=== PATIENT | female | born 1950 | race Two or more races ===

== ENCOUNTER 2024-08-05 14:58 | Emergency (ER) | payer OTHER ==
[~2024-08-05] VITALS: Ht 167.6 cm; Wt 66.2 kg
[2024-08-05] MEDS ORDERED: SYNTHROID50 MCG (15:22)
[2024-08-05 16:20] LABS: HEMATOCRIT 34.8 % (36.0-45.00); HEMOGLOBIN 11.9 g/dL (12.0-15.00); MEAN CELL VOLUME 93.3 fL (80.00-100.00); MEAN CORPUSCULAR HGB CONC 34.3 g/dl (32.0-36.0); PLATELET COUNT 203 K/uL (150-450); RED BLOOD COUNT 3.73 M/uL (4.00-6.00)
[2024-08-05 16:52] LABS: BILIRUBIN TOTAL 0.48 mg/dL (0.3-1.2); CREATININE SERUM 1.06 mg/dL (0.55-1.02); GFR 50.54; POTASSIUM 3.62 mEq/L (3.5-5.1)
[2024-08-05 16:53] LABS: PH,URINE 5.5 (5.0-8.0); URINE APPEARANCE Clear; URINE BILIRRUBIN Negative (NEGATIVE); URINE BLOOD Negative; URINE COLOR Yellow; URINE GLUCOSE Negative (NEGATIVE); URINE KETONE Trace (NEGATIVE); URINE LEUKOCYTE Moderate; URINE NITRATE Negative; URINE PROTEIN Trace (NEGATIVE); URINE UROBILINOGEN 0.2 E.U./dl
[2024-08-05 16:57] LABS: URINE RBC 6.3 uL (0.0-20.8); URINE WBC 45.2 uL (0.0-23.2)
[2024-08-05 17:01] LABS: INR 1.08; PROTHROMBIN TIME 11.7 SECONDS (9.0-11.5)
[2024-08-05] MEDS ORDERED: CEPHALEXIN500 M1 PO (18:39)
== END 2024-08-05 18:43 | disposition home or self-care (01) ==
LOC: ER 14:58
PROVIDERS: General Practice
DX: G45.9 Transient cerebral ischemic attack, unspecified (principal); E03.9 Hypothyroidism, unspecified